=== PATIENT | female | born 1965 | race African-American/Black ===

== ENCOUNTER → 2018-04-08 | Outpatient (CLI) | payer OTHER ==
[2015-10-19 04:36] VITALS: BP 143/77
--- NOTE | 2018-04-08 16:55 | KCIC ---
MRI Cervical Spine Without Contrast History: Neck pain, distal paresthesia, numbness in the feet and hands Technique: Multiplanar, multi sequential noncontrast MR imaging was performed of the cervical spine. Comparison: None Findings: Cervical cord caliber is within normal limits without focal signal abnormality. Cervical vertebral body stature is maintained. There is negligible posterior subluxation C4 relative to C5. There is moderate to severe degenerative disc disease at C4-5, mild degenerative disc disease at other levels other than sparing C7-T1. There are posterior annular tears C5-6 and C6-7. There is no significant marrow edema. C2-C3: Spinal canal and neural foramina are adequate. C3-C4: There is mild facet degenerative change. Neural foramina and spinal canal are adequate. C4-C5: There is moderate left greater than right facet degenerative change. There is minimal disc osteophyte complex. Central canal is minimally narrowed to about 9-10 mm. There is mild left uncovertebral degenerative change. Right neural foramen is adequate, moderate to severe narrowing of the left neural foramen. C5-C6: Neural foramina and spinal canal adequate. There is bilateral facet degenerative change. C6-C7: There is negligible disc osteophyte complex. Neural foramina and spinal canal are adequate. There is bilateral facet degenerative change. C7-T1: Neural foramina and spinal canal are adequate. There is facet degenerative change bilaterally. Impression: 1. There is mild spinal stenosis C4-5. 2. There is degenerative disc disease greatest at C4-5. There is mild spondylosis. 3. There is moderate to severe narrowing of the left C4-5 neural foramen due to facet and uncovertebral degenerative change. Electronically signed by: Sarath Carvajal MD (04/08/2018 4:53 PM) [facility]
== END | disposition home or self-care (01) ==
LOC: KCIC MRI 15:56
PROVIDERS: ATTEND Family Medicine
DX: M47.892 Other spondylosis, cervical region (principal); M50.321 Other cervical disc degeneration at C4-C5 level; M48.02 Spinal stenosis, cervical region; M25.78 Osteophyte, vertebrae; M50.323 Other cervical disc degeneration at C6-C7 level
CPT/HCPCS: 72141

== ENCOUNTER → 2018-04-15 | Outpatient (CLI) | payer OTHER ==
[2015-10-19 04:36] VITALS: BP 143/77
--- NOTE | 2018-04-15 09:03 | RAD ---
MR#: [id number] Date of Study: 04/15/2018 Ordering Physician: JOHNNY WANG Referring Physician: SHOSHANA HAYNES Tech: APPROVED REPORT Test Type: Exercise Stress Nurse/Tech: Kindra Martinez R.N. Test Indications: chest pressure Cardiac History: No known cardiac Medications: See Electronic Medical Record Medical History: See Electronic Medical Record Resting ECG: NSR Resting Heart Rate: 68 bpm Resting Blood Pressure: 119/67mmHg Pretest Chest Pain: No chest pain Nurse/Tech Notes [id number], lungs sound clear Consent: The procedure was explained to the patient in lay terms. Informed consent was witnessed. Cameron lucas was entered into [employer]. History and Stress Test performed by Kindra Martinez R.N. Stress Symptoms Fatigue POST EXERCISE Reason for Termination: Reached target heart rate Target HR: 143 Max HR: 152 bpm Exercise duration: 8 min min:sec, 3 Stage Max Blood Pressure: 132/74mmHg Blood Pressure response to exercise: Normal blood pressure response during stress. Chest Pain: No. Arrhythmia: No. ST Change: No. INTERPRETATION Stress EKG Conclusion: Baseline EKG - WNL Stress EKG - Artifact noted but grossly no evidence of ischemic changes. Normal exercise capacity with 10 mets achieved. Blunted BP response noted. Normal heart rate response. Conclusion 1. Treadmill EKG only - No additional imaging ordered 2. No significant ischemic EKG findings. (limited evaluation due to motion artifact on EKG) 3. Patient achieved 10 Mets - WNL 4. Blunted BP response - correlate with BP meds. 5. Normal HR response. Signed by : Edilberto Blevins, Electronically Approved : 04/15/2018 09:02:27
== END | disposition home or self-care (01) ==
LOC: NM 07:21
PROVIDERS: ATTEND Family Medicine
DX: R07.9 Chest pain, unspecified (principal)
CPT/HCPCS: 93017